=== PATIENT | male | born 1965 | race Caucasian/White ===

== ENCOUNTER 2021-07-23 08:36 | Day surgery (SDC) | payer BC ==
[2021-07-20 13:20] VITALS: BMI 28.7
[~2021-07-23 08:36] MED LIST: LACTATED RINGERS 1,000 ML IV SCH; LIDOCAINE 1% (10MG/ML) FOR IV START INTRADERMA PRN
[2021-07-23 09:03] VITALS: RESP 16; TEMP 97
[2021-07-23] MEDS ORDERED: PROPOFOL 10 MG/ML 20 ML VIAL IV ONE (09:38)
--- NOTE | 2021-07-23 09:44 | P.GSHP ---
History of Present Illness H&P Date: 07/23/21 Chief Complaint: Screening colonoscopy This a 55-year-old male presents today for screening colonoscopy. Patient denies any significant GI complaints. Past Medical History Past Medical History: Hyperlipidemia, Hypertension History of Any Multi-Drug Resistant Organisms: None Reported Past Surgical History: Appendectomy, Heart Catheterization With Stent Past Anesthesia/Blood Transfusion Reactions: No Reported Reaction Date of Last Stent Placement:: 2018 Smoking Status: Former smoker Medications and Allergies Home Medications Medication Instructions Recorded Confirmed Type Aspirin 81 mg PO DAILY 07/20/21 07/23/21 History Atorvastatin [Lipitor] 80 mg PO DAILY 07/20/21 07/23/21 History Ezetimibe [Zetia] 10 mg PO DAILY 07/20/21 07/23/21 History Metoprolol Tartrate [Lopressor] 25 mg PO BID 07/20/21 07/23/21 History Allergies Allergy/AdvReac Type Severity Reaction Status Date / Time No Known Allergies Allergy Verified 07/23/21 08:58 Surgical - Exam Vital Signs Temp Pulse Resp BP Pulse Ox 97.0 F L 60 16 112/57 98 07/23/21 09:01 07/23/21 09:01 07/23/21 09:01 07/23/21 09:01 07/23/21 09:01 - General well developed, well nourished, no distress - Eyes PERRL - ENT normal pinna - Neck no masses - Respiratory normal expansion - Cardiovascular Rhythm: regular - Abdomen Abdomen: soft, non tender Assessment and Plan Assessment: We'll perform screening colonoscopy.
--- NOTE | 2021-07-23 09:54 | P.OP ---
Date of Procedure: 07/23/21 Preoperative Diagnosis: Screening colonoscopy Postoperative Diagnosis: Normal colonoscopy Procedure(s) Performed: Colonoscopy Anesthesia: MAC Surgeon: Carlos Linares Pathology: none sent Condition: stable Disposition: PACU Description of Procedure: PROCEDURE: The patient was placed on the endoscopy table in the lateral position. Digital rectal examination was performed which revealed no abnormalities. The prostate was symmetrical without nodules. Flexible colonoscope was then placed in the patient's anus and passed throughout the entire colon. The ileocecal valve was visualized. The cecum, ascending, transverse, descending and sigmoid colon were normal. The rectum was normal as well. There were no masses, polyps or diverticula noted in the entire colon. SUMMARY OF FINDINGS: Normal colonoscopy.
[2021-07-23 10:13] VITALS: BP 108/68; PULSE 50
== END 2021-07-23 10:49 | disposition home or self-care (01) ==
LOC: ORWHC2ENDO 08:36
PROVIDERS: ATTEND Surgery
DX: Z12.11 Encounter for screening for malignant neoplasm of colon (principal); E78.5 Hyperlipidemia, unspecified; I10 Essential (primary) hypertension; Z95.5 Presence of coronary angioplasty implant and graft; Z90.49 Acquired absence of other specified parts of digestive tract; Z87.891 Personal history of nicotine dependence; Z79.82 Long term (current) use of aspirin; Z79.899 Other long term (current) drug therapy
CPT/HCPCS: J2704; G0121

== ENCOUNTER → 2022-04-22 | Outpatient (CLI) | payer BC ==
[2022-04-22 14:15] LABS: HCT 52.6 % (39.6-50.0); HGB 16.8 g/dL (13.0-17.0); MCH 30.5 pg (27.0-32.0); MCHC 31.9 g/dL (32.0-37.0); MCV 95.5 fL (80.0-97.0); Mean Platelet Volume 10.8 fL (9.5-12.2); NRBC Per 100 WBC 0 /100 WBCS (0.0-0.0); Platelet Count 268 X 10*3/uL (140-440); RBC 5.51 X 10*6/uL (4.40-5.60); RDW 12.8 % (11.5-14.5); WBC 5.37 X 10*3/uL (4.50-10.00)
[2022-04-22 14:29] LABS: African American GFR (CKD) 89.1 (60.0-200.0); Anion Gap 8.4 mmol/L (10.00-18.00); Carbon Dioxide 30.3 mmol/L (20.0-27.5); Non-African American GFR(CKD) 76.9 (60.0-200.0); Potassium 5.3 mmol/L (3.5-5.5)
== END | disposition home or self-care (01) ==
LOC: LABPAT 08:34
PROVIDERS: ATTEND Internal Medicine
DX: Z01.812 Encounter for preprocedural laboratory examination (principal); I25.10 Atherosclerotic heart disease of native coronary artery without angina pectoris
CPT/HCPCS: 80051; 82565; 84520; 85027

== ENCOUNTER → 2022-04-27 | Day surgery (SDC) | payer BC ==
[~2022-04-27] MED LIST changes: +ALPRAZolam 0.25 MG TAB PO PRN; +ALPRAZolam 0.5 MG TAB PO PRN; +ASPIRIN 325 MG TAB PO STA; +ATORVASTATIN 80 MG TAB PO STA; +HEPARIN SODIUM 1,000 UN/ML (10ML VL) IV ONE; +HEPARIN SODIUM 1,000 UN/ML (10ML VL) ONE; +HEPARIN SODIUM,PORCINE 10,000 UNIT in SODIUM CHLORIDE 0.9% 1,000 ML IRRIGATION PRN; +HEPARIN SODIUM,PORCINE 2,500 UNIT in SODIUM CHLORIDE 0.9% 250 ML IRRIGATION PRN; +IOPAMIDOL-370 125ML BTL INJ ONE; -LACTATED RINGERS 1,000 ML IV SCH; -LIDOCAINE 1% (10MG/ML) FOR IV START INTRADERMA PRN; +LIDOCAINE 1% INJ 10MG/ML (5 ML VIAL-PF) SQ ONE; +NITROGLYCERIN SL TABS 0.4 MG TAB SUBLINGUAL PRN; +SODIUM CHLORIDE 0.9% 1,000 ML IV ONE; +SODIUM CHLORIDE 0.9% 1,000 ML in EMPTY BAG 1 BAG IV SCH; +VERAPAMIL 2.5 MG/ML 2 ML AMP ONE; +VERAPAMIL SYRINGE (5 MG/10 ML) INTRAARTER ONE; +fentaNYL (PF) 50 MCG/ML 2 ML AMP ONE
[2022-04-27 08:04] VITALS: RESP 16; TEMP 98.3
[2022-04-27] MEDS: fentaNYL (PF) 50 MCG/ML 2 ML AMP IV ONE ×2 (09:13→09:17)
[2022-04-27] MEDS: MIDAZOLAM 2 MG/2 ML VIAL IV ONE ×2 (09:13→09:17)
--- NOTE | 2022-04-27 09:47 | P.CARDCATH ---
Description of Procedure: PROCEDURES PERFORMED: Left heart catheterization, bilateral coronary angiography INDICATION: Abnormal stress test, inferior hypokinesis, history of CAD HISTORY: Patient is a pleasant 56-year-old male with history of PCI of LAD with symptoms of more arm pain and shortness of breath with prior PCI. He has been having some atypical arm pain and had echo which showed inferior septal hypokinesis as well as Cardilate stress test which showed inducible inferior ischemia. Therefore recommendations were for heart catheterization. CONSENT:I have discussed the risks, benefits and alternative therapies for the above-mentioned procedure and for both sedation/analgesia as well as necessary blood product administration, if indicated, as they pertain to this patient. The patient has indicated understanding and acceptance of the risks and procedures discussed. PROCEDURE: After the risks, benefits and alternatives of the above mentioned procedure explained in detail with the patient, informed consent was obtained. Patient was taken to the catheterization lab and prepped and draped in usual fashion. 1% lidocaine was used to anesthetize the right radial artery. A 6- Cymraes sheath was placed in the right radial artery using modified Seldinger technique. Left coronary angiography was performed with a 5-Cymraes JL 3.5 catheter and right coronary angiography was performed with a 5-Cymraes JR5 catheter in various views. A 5-Cymraes FR5 catheter was inserted into the left ventricle and pressure measurements were obtained. The right radial sheath was removed and a TR band was placed with hemostasis achieved. The patient tolerated the procedure well. Patient was transported back to the post catheterization holding area in stable condition. Conscious Sedation: Patient was monitored under the direct supervision of vision of myself for conscious sedation using Versed and fentanyl for a total duration of 19 minutes HEMODYNAMICS: Aorta: 96/49 LV: 94/3, LVEDP 15 SELECTIVE CORONARY ARTERIOGRAPHY: LEFT MAIN: The left main is a large caliber vessel which bifurcates into the LAD and circumflex. There is no significant stenosis. LEFT ANTERIOR DESCENDING CORONARY ARTERY: LAD is a large caliber vessel which wraps around to the apex. There is a patent mid LAD stent without significant stenosis and otherwise mild 10- 20% stenosis of the proximal and mid LAD. There is THOMAS 2-3 flow of the apical LAD which may represent underlying microvascular disease. LEFT CIRCUMFLEX CORONARY ARTERY: Left circumflex is a moderate caliber vessel without significant stenosis. RIGHT CORONARY ARTERY: The right coronary artery is a moderate to large caliber vessel which gives off a PDA and PLV branch and is the dominant vessel. There are mild luminal irregularities up to 10-20% RCA stenosis. There is THOMAS 2-3 flow of the distal PDA which may represent underlying microvascular disease. FINAL IMPRESSION: 1. Mild CAD as described above with patent LAD stent and otherwise mild 10-20% stenosis of the LAD and RCA. 2. Normal left sided filling pressures 3. THOMAS 2-3 flow of the RCA and apical LAD. PLAN: 1. Aggressive risk factor modification per most recent ACC/AHA guidelines. 2. Follow-up in the office in 1-2 weeks. 3. No significant epicardial disease however some borderline THOMAS 2-3 flow of the distal PDA and apical LAD which can represent microvascular disesae. Continue antianginals if patient having significant angina.
[2022-04-27 15:55] VITALS: BP 112/62; PULSE 54
== END ==
LOC: CATHCVL 07:36
PROVIDERS: ATTEND Internal Medicine
DX: I25.10 Atherosclerotic heart disease of native coronary artery without angina pectoris (principal); Z20.822 Contact with and (suspected) exposure to COVID-19
CPT/HCPCS: 93458; 87635; C1769; C1894; J2250; J2001; J3010; J1644; Q9967